=== PATIENT | female | born 1990 | race African-American/Black ===

== ENCOUNTER 2017-02-10 01:36 | Emergency (ER) | payer SELFPAY ==
[~2017-02-10] VITALS: Ht 167.6 cm; Wt 64.4 kg
--- NOTE | 2017-02-10 02:25 | NUR ---
PATIENT WALKED IN WITH FRIEND, PT A/OX4 BREATHING EFFORTLESSLY ON ROOM AIR, PT C/O MIDSTERNAL CHEST PAIN 9 HOURS, PT DENIES SOB AND IS NOT DIAPHORETIC, PT STATES SHE WAS WALKING WHEN THE PAIN STARTED, PT STATES THE PAIN DOES NOT RADIATE, PT ON MONITOR, IV PLACED AND LABS DRAWN, PT IN GOWN MADE AWARE WILL CONTINUE TO MONITOR.
[2017-02-10] MEDS ORDERED: KETOROLAC TROMETHAMINE INJ 30 MG/ML VIAL IV ONE (02:30)
[2017-02-10] MEDS ORDERED: KETOROLAC TROMETHAMINE INJ 30 MG/ML VIAL ONE (02:42)
[2017-02-10 02:44] LABS: BASOPHILS # (AUTO) 0.1 /CMM (0.0-0.2); EOSINOPHILS # (AUTO) 0.2 /CMM (0.0-0.7); EOSINOPHILS % (AUTO) 3.3 % (0.0-6.0); HEMATOCRIT 37 % (33-45); HEMOGLOBIN 12.2 g/dL (11.5-14.8); LYMPHOCYTES # (AUTO) 2.5 /CMM (0.8-4.8); LYMPHOCYTES % (AUTO) 49.9 % (20.0-44.0); MEAN CORPUSCULAR HEMOGLOBIN 29 PG (26.0-33.0); MEAN CORPUSCULAR HGB CONC 33 g/dl (31.0-36.0); MEAN CORPUSCULAR VOLUME 86 fL (82-100); MONOCYTES # (AUTO) 0.2 /CMM (0.1-1.30); MONOCYTES % (AUTO) 4.8 % (2.0-12.0); PLATELET COUNT (AUTO) 228 /CMM (150-450); RDW COEFFICIENT OF VARIATION 13.5 (11.5-15.0); RED BLOOD CELL COUNT(AUTO) 4.26 MIL/uL (4.0-5.2)
[2017-02-10 02:57] LABS: CALCIUM, SERUM 9.1 mg/dL (8.5-10.1); CARBON DIOXIDE 28 mmol/L (21-32); CHLORIDE 105 mmol/L (98-107); CREATININE 0.8 mg/dL (0.6-1.3); GLUCOSE 76 mg/dL (74-106); POTASSIUM 3.6 mmol/L (3.5-5.1); SODIUM SERUM 141 mmol/L (136-145); UREA NITROGEN, BLOOD 15 mg/dL (7-18)
[2017-02-10 03:04] LABS: D-DIMER < 0.19 mg/L(FEU (0.17-0.50); INR 1.07 (0.87-1.13); PARTIAL THROMBOPLASTIN TIME 27 SEC (23-34); PROTHROMBIN TIME 11.1 SECS (9.5-12.7)
[2017-02-10 03:05] LABS: TROPONIN I < 0.017 ng/mL (0.00-0.056)
--- NOTE | 2017-02-10 04:00 | NUR ---
IV removed. Catheter intact and site benign. Pressure and 4x4 applied to site. No bleeding noted.Patient discharged to home in stable condition. Written and verbal after care instructions given. Patient verbalizes understanding of instruction.
[2017-02-10 04:01] VITALS: BP 122/64
== END 2017-02-10 04:16 | disposition home or self-care (01) ==
LOC: ER 01:40
DX: R07.89 Other chest pain (principal)
CPT/HCPCS: 36415; 71010; 80048; 84484; 84702; 85025; 85378; 85730; 93005; 96374; 99285; A4606; J1885; Z7610